=== PATIENT | female | born 1955 | race Two or more races ===

== ENCOUNTER 2019-08-13 09:49 | Emergency (ER) | payer SELFPAY ==
[~2019-08-13] VITALS: Ht 160 cm; Wt 68.9 kg
[2019-08-13 09:52] VITALS: Ht 160 cm; Wt 68.9 kg
[2019-08-13 12:25] VITALS: BP 116/71
== END 2019-08-13 12:25 | disposition home or self-care (01) ==
LOC: ED 09:49
DX: H81.10 Benign paroxysmal vertigo, unspecified ear (principal)
CPT/HCPCS: 82962; J8597

== ENCOUNTER 2019-09-17 16:13 | Emergency (ER) | payer SELFPAY ==
[~2019-09-17] VITALS: Ht 162.6 cm; Wt 67.6 kg
[2019-09-17 16:25] VITALS: Ht 162.6 cm; Wt 67.6 kg
[2019-09-17 17:05] LABS: BASOPHIL % 0.2 % (0-2)
[2019-09-17 17:06] LABS: PLATELET COUNT 71 x10^3mcL (130-400)
[2019-09-17 17:15] LABS: CALCIUM 8.6 mg/dL (8.5-10.1); CHLORIDE SERUM 100 mmol/L (98-107); CREATININE SERUM 0.8 mg/dL (0.6-1.0); GFR1 > 60 mL/min; GLUCOSE SERUM 150 mg/dL (74-106); POTASSIUM SERUM 3.7 mmol/L (3.5-5.1); SODIUM SERUM 137 mmol/L (136-145)
[2019-09-17 17:28] LABS: ALBUMIN 3.9 g/dL (3.4-5.0); ALKALINE PHOSPHATASE 87 U/L (46-116); ALT/SGPT 27 U/L (14-59); AST/SGOT 18 U/L (15-37); BILIRUBIN TOTAL 0.2 mg/dL (0.20-1.00); TOTAL PROTEIN, SERUM 7.1 g/dL (6.4-8.2)
[2019-09-17 17:52] LABS: AMPHETAMINE QUAL UR NONE DETECTED (See below)
[2019-09-17 18:03] VITALS: BP 135/68
== END 2019-09-17 18:03 | disposition home or self-care (01) ==
LOC: ED 16:13
PROVIDERS: Emergency Medicine
DX: H81.399 Other peripheral vertigo, unspecified ear (principal)
CPT/HCPCS: 36415; J8597; Q0162

== ENCOUNTER 2019-09-23 17:58 | Emergency (ER) | payer SELFPAY ==
[~2019-09-23] VITALS: Ht 160 cm; Wt 67.6 kg
[2019-09-23 18:02] VITALS: Ht 160 cm; Wt 67.6 kg
[2019-09-23 18:44] LABS: BASOPHIL % 0.4 % (0-2); RED CELL DISTRIBUTION WIDTH 14.1 % (11.5-14.5)
[2019-09-23 18:46] LABS: PLATELET COUNT 67 x10^3mcL (130-400)
[2019-09-23 19:00] LABS: CALCIUM 8.8 mg/dL (8.5-10.1); CARBON DIOXIDE 25.6 mmol/L (21-32); CHLORIDE SERUM 93 mmol/L (98-107); CREATININE SERUM 0.8 mg/dL (0.6-1.0); GFR1 > 60 mL/min; GLUCOSE SERUM 129 mg/dL (74-106); POTASSIUM SERUM 3.2 mmol/L (3.5-5.1); SODIUM SERUM 129 mmol/L (136-145)
[2019-09-23 19:04] LABS: ALBUMIN 4.1 g/dL (3.4-5.0); ALKALINE PHOSPHATASE 95 U/L (46-116); ALT/SGPT 23 U/L (14-59); AST/SGOT 15 U/L (15-37); BILIRUBIN TOTAL 0.45 mg/dL (0.20-1.00)
[2019-09-23 19:21] LABS: T3 TOTAL 1.41 ng/mL
[2019-09-23 19:29] LABS: FREE T4 1.31 ng/dL (0.76-1.46); FREE THYROXINE INDEX 3.3 ug/dL (1.4-4.5); T4(THYROXINE) 10.3 ug/dL (4.7-13.3)
[2019-09-23 20:03] VITALS: BP 128/70
== END 2019-09-23 20:03 | disposition home or self-care (01) ==
LOC: ED 17:58
PROVIDERS: Emergency Medicine
DX: E87.6 Hypokalemia (principal); R00.2 Palpitations; F41.9 Anxiety disorder, unspecified; R51 Headache; Z88.6 Allergy status to analgesic agent; Z90.89 Acquired absence of other organs
CPT/HCPCS: 83880; 84439; 85378; Q0092